=== PATIENT | male | born 1950 | race Caucasian/White ===

== ENCOUNTER → 2016-07-14 | Outpatient (CLI) | payer OTHER ==
[~2016-07-14] MED LIST: ASCO500T2 PO; ASPI81TA2 PO; CHOL2000 PO; DILT360C PO; GLUC1TAB71 PO; HYDR-971 PO; LOSA1TAB16 PO; METH-364 PO; METH5TAB6 PO; MULT-667 PO; OMEG500C PO
[2016-07-14 16:01] LABS: BASO % 1 % (0-3); EOS % 2 % (0-3); HEMATOCRIT 45.3 % (39.0-53.0); HEMOGLOBIN 15.4 g/dL (13.0-17.5); LYMPH # 2.8 x10^3/uL (1.0-4.8); LYMPH % 38 % (24-48); MEAN CORPUSCULAR HEMOGLOBIN 30 pg (25-35); MEAN CORPUSCULAR HGB CONC 34 g/dL (31-37); MEAN CORPUSCULAR VOLUME 87 fL (79-100); MONO % 10 % (0-9); NEUT % 50 % (31-73); PLATELET COUNT 205 x10^3/uL (140-400); RED BLOOD COUNT 5.18 x10^6/uL (4.30-5.70); RED CELL DISTRIBUTION WIDTH 14.6 % (11.5-14.5); WHITE BLOOD COUNT 7.3 x10^3/uL (4.0-11.0)
[2016-07-14 16:14] LABS: CALCIUM 8.6 mg/dL (8.5-10.1); CREATININE 1.2 mg/dL (0.7-1.3); GFR 61.1; POTASSIUM 3.5 mmol/L (3.5-5.1)
== END | disposition home or self-care (01) ==
LOC: SURGPAT 15:06
PROVIDERS: ATTEND Surgery
DX: Z01.812 Encounter for preprocedural laboratory examination (principal)
CPT/HCPCS: 36415; 80048; 85027

== ENCOUNTER 2016-07-17 06:58 | Day surgery (SDC) | payer OTHER ==
[~2016-07-17] VITALS: Ht 180.3 cm; Wt 113.4 kg
[~2016-07-17 06:58] MED LIST changes: +BUPIVACAINE-EPI 0.25%-1:200000 MPF 30 ML VIAL. ONE; -HYDR-971 PO
[2016-07-17] MEDS ORDERED: fentaNYL PF VIAL 100 MCG/2 ML VIAL IV PRN ×2 (07:00)
[2016-07-17] MEDS ORDERED: IV RINGERS,LACTATED 1000ML 1,000 ML IV SCH (07:00)
[2016-07-17] MEDS ORDERED: PROCHLORPERAZINE 10 MG/2 ML VIAL. IV PRN (07:00)
[2016-07-17] MEDS ORDERED: HYDROmorphone 2 MG/ML VIAL IV PRN (07:00)
[2016-07-17] MEDS ORDERED: MORPHINE SULFATE 2 MG/ML DISP.SYRIN. IV PRN (07:00)
[2016-07-17] MEDS ORDERED: LIDOCAINE 1% 1 ML SYRINGE. ID PRN (07:00)
[2016-07-17] MEDS ORDERED: ONDANSETRON PF 4 MG/2 ML VIAL. IV PRN (07:00)
[2016-07-17] MEDS ORDERED: ROCURONIUM 100 MG/10 ML VIAL. ONE (08:11)
[2016-07-17] MEDS ORDERED: LIDOCAINE 2% 100 MG/5 ML SYRINGE. ONE (08:12)
[2016-07-17] MEDS ORDERED: PROPOFOL 20 ML IV ONE (08:12)
[2016-07-17] MEDS ORDERED: MIDAZOLAM HCL/PF 2 MG/2 ML VIAL. ONE (08:13)
[2016-07-17] MEDS ORDERED: fentaNYL PF VIAL 250 MCG/5 ML VIAL ONE (08:13)
[2016-07-17] MEDS ORDERED: ONDANSETRON PF 4 MG/2 ML VIAL. ONE (08:57)
[2016-07-17] MEDS ORDERED: SEVOFLURANE 61 TO 120 MINUTES. IH ONE (08:57)
[2016-07-17] MEDS ORDERED: DEXAMETHASONE SOD PHOS 20 MG/5 ML VIAL. ONE (08:57)
[2016-07-17] MEDS ORDERED: KETOROLAC 30 MG/ML INJ FOR OR. INJ ONE (09:00)
--- NOTE | 2016-07-17 09:29 | PDOC ---
BRIEF OPERATIVE NOTE Date: July 17, 2016 Pre-Op Diagnosis Incarcerated ventral hernia Post-Op Diagnosis Same Procedure Performed Robotic assisted L/S Ventral hernia repair with mesh Surgeon Yung Anesthesia Type: General Blood Loss 5ml Specimens Obtained None Findings As above Complications None ZAN SAAVEDRA MD July 17, 2016 09:29
[2016-07-17] MEDS ORDERED: GLYCOPYRROLATE 1 MG/5 ML VIAL. ONE (09:30)
[2016-07-17] MEDS ORDERED: NEOSTIGMINE METHYLSULFATE 5 MG/5 ML SYRINGE. ONE (09:30)
--- NOTE | 2016-07-17 09:31 | DISCH ---
DISCHARGE INSTRUCTIONS Condition on Discharge Condition on Discharge: Stable Activity After Discharge Activity Instructions for Disc: Avoid exertion Other activity instructions: No lifting >20lbs for 2 weeks Lifting Instructions after Dis: No heavy lifting Diet after Discharge Diet after Discharge: Regular Wound Incision Care Other wound/incision instructi: Cherelle shower in 24 hours Contacting the after DC Call your doctor for: If your condition worsens Follow-Up Follow up with: Dr Saavedra in 2 weeks ZAN SAAVEDRA MD July 17, 2016 09:30
[2016-07-17] MEDS ORDERED: HYDR-971 PO (09:54)
[2016-07-17] MEDS ORDERED: HYDROcodone/APAP 5/325MG 1 TAB TABLET PO PRN ×2 (10:00)
[2016-07-17 10:27] VITALS: BP 111/74
--- NOTE | 2016-07-17 11:16 | OP ---
DATE OF SURGERY: 07/17/2016 PREOPERATIVE DIAGNOSIS: Ventral hernia. POSTOPERATIVE DIAGNOSIS: Ventral hernia. PROCEDURE: Robotic-assisted laparoscopic ventral hernia repair with mesh. SURGEON: Froylan Saavedra M.D. INDICATIONS: The patient is a 65-year-old gentleman complains a bulge just above the umbilicus, has been present for number of years, increasing in size and becoming somewhat tender especially with activity. Procedure of robotic-assisted laparoscopic ventral hernia repair with mesh was explained to the patient in detail. Risks, benefits were also discussed including bleeding, infection, injury to intra-abdominal contents, possibly necessitating further open operation. Alternatives of this procedure were also discussed with the patient who seemed to understand and gave verbal and written consent to have the procedure performed. DESCRIPTION OF PROCEDURE: The patient was taken to the operating room and placed in the supine position, general anesthesia was initiated. Once the patient was asleep and intubated, his abdomen was prepped and draped in usual sterile fashion using ChloraPrep. An area in the left upper quadrant was injected with 0.25% Marcaine with epinephrine. Incision was made with an 11 blade scalpel and a 5 mm Visiport was placed under direct visualization with 5 mm camera. Once this was in place, pneumoperitoneum was achieved and the abdomen was inspected. It was noted that there was some omentum incarcerated within the hernia defect. At this point, two 8 mm ports were placed under direct visualization, one in the left mid abdomen and one in the left lower abdomen. The 5 mm Visiport was placed with the da Ami 8 mm port. At this point, the da Ami robot was brought in and docked to all ports. EndoShears scissors were placed port as well as grasper and the other. At this point, the surgeon went to the robotic console. Using a grasper, the incarcerated omentum was reduced from the hernia defect. The hernia defect was then closed with a running nonabsorbable V-Loc suture. surgical mesh was placed over the defect. This was sewn into place with a running 2-0 V-Loc absorbable suture. Once this was complete, then da Ami robot was undocked, ports were removed. Pneumoperitoneum was reduced. All incision sites were closed with 4-0 subcuticular Monocryl. Mastisol, Steri-Strips and Band-Aids were applied as dressings. The patient was awakened, extubated in the operating room, taken to recovery in stable condition. All sponge, instrument counts listed as correct. ESTIMATED BLOOD LOSS: 5 mL. FROYLAN SAAVEDRA MD DR: LAZARUS/philly JOB#: [id number] / [id number] NILSON Carpio MD
== END 2016-07-17 11:52 | disposition home or self-care (01) ==
LOC: SURG 06:58
PROVIDERS: ATTEND Surgery
DX: K43.9 Ventral hernia without obstruction or gangrene (principal); I48.91 Unspecified atrial fibrillation; I10 Essential (primary) hypertension; J45.909 Unspecified asthma, uncomplicated; M19.90 Unspecified osteoarthritis, unspecified site; Z87.39 Personal history of other diseases of the musculoskeletal system and connective tissue
CPT/HCPCS: 49652; C1781; J0690; J1100; J1885; J2250; J2405; J2704; J2710; J3010; J3490; J7120